=== PATIENT | female | born 1980 | race Caucasian/White ===

== ENCOUNTER 2023-04-04 06:12 | Day surgery (SDC) | payer MEDICAID ==
[2023-03-29 15:42] LABS: BASOPHILS % (AUTO) 0.3 % (0.0-2.0); EOSINOPHILS # (AUTO) 0.8 K/uL (0-0.4); EOSINOPHILS % (AUTO) 10.6 % (0.0-4.0); HEMATOCRIT 36.8 % (36-48); HEMOGLOBIN 12.3 g/dL (12.0-16.0); LYMPHOCYTES # (AUTO) 3.2 K/uL (2.5-16.5); LYMPHOCYTES % (AUTO) 42.8 % (20.5-51.1); MEAN CORPUSCULAR HEMOGLOBIN 29 pg (27-31); MEAN CORPUSCULAR HGB CONC 34 g/dL (33-37); MEAN CORPUSCULAR VOLUME 86.6 fL (80-94); MONOCYTES # (AUTO) 0.6 K/uL (0.8-1.0); MONOCYTES % (AUTO) 7.7 % (1.7-9.3); NEUTROPHILS # (AUTO) 2.9 K/uL (1.8-7.7); NEUTROPHILS % (AUTO) 38.6 % (42.2-75.2); PLATELET COUNT (AUTO) 208 K/uL (140-450); RED BLOOD CELL COUNT(AUTO) 4.24 MIL/uL (4.20-5.40); RED CELL DISTRIBUTION WIDTH 13.7 % (11.6-13.7); WHITE BLOOD COUNT (AUTO) 7.5 K/uL (4.8-10.8)
[2023-03-29 15:55] LABS: ANION GAP 13.5 (8-16); CARBON DIOXIDE 26.6 mmol/L (21-32); CREATININE 0.6 mg/dL (0.6-1.3); POTASSIUM 4.1 mmol/L (3.5-5.1); TOTAL BILIRUBIN 0.2 mg/dL (0.0-1.0)
[~2023-04-04] VITALS: Ht 160 cm; Wt 54.4 kg
[2023-04-04] MEDS ORDERED: BUPIVACAINE-MPF 0.25% 30 ML VIAL INJ ONE (07:45)
[2023-04-04] MEDS ORDERED: SEVOFLURANE 250 ML BTL INH ONE (08:19)
[2023-04-04] MEDS ORDERED: fentaNYL citrate 0.05 MG/ML VIAL ONE (08:22)
[2023-04-04] MEDS ORDERED: METOCLOPRAMIDE 10 MG/2 ML INJ VIAL IVP PRN (09:12)
[2023-04-04] MEDS ORDERED: LABETALOL 20 MG/4 ML VIAL IVP PRN (09:12)
[2023-04-04] MEDS ORDERED: hydrALAZINE 20 MG/ML VIAL IVP PRN (09:13)
[2023-04-04] MEDS ORDERED: LACTATED RINGERS 1,000 ML IV SCH (09:15)
[2023-04-04] MEDS ORDERED: HYDROmorphone 1 MG/ML AMP IVP PRN (09:15)
[2023-04-04] MEDS ORDERED: diphenhydrAMINE 50 MG/ML VIAL IVP PRN (09:15)
[2023-04-04] MEDS ORDERED: PROPOFOL 200 MG/20 ML VIAL IV ONE (09:34)
[2023-04-04] MEDS ORDERED: ATROPINE 0.4 MG/ML VIAL ONE (09:34)
[2023-04-04] MEDS ORDERED: SUCCINYLCHOLINE CHLORIDE 200 MG/10 ML VIAL IVP ONE (09:34)
[2023-04-04] MEDS ORDERED: ONDANSETRON 4 MG/2 ML VIAL ONE (09:35)
[2023-04-04] MEDS ORDERED: KETOROLAC 30 MG/ML VIAL ONE (09:35)
== END 2023-04-04 10:30 | disposition home or self-care (01) ==
LOC: MDS 06:12 → MMU 06:14 → MDS 10:30
PROVIDERS: ATTEND Obstetrics & Gynecology
DX: Z30.2 Encounter for sterilization (principal)
CPT/HCPCS: 36415; 58670; 80053; 81025; 82374; 85025; J0330; J0461; J1885; J2405; J2704; J3010; J3490; J7120